=== PATIENT | male | born 1965 | race Caucasian/White ===

== ENCOUNTER 2024-04-25 07:09 | Outpatient (CLI) | payer BC | END 2024-04-25 07:10 | disposition home or self-care (01) | LOC: CSHCT 07:09 | PROVIDERS: ATTEND Physician Assistant | DX: R10.33 Periumbilical pain (principal); K63.89 Other specified diseases of intestine; K57.30 Diverticulosis of large intestine without perforation or abscess without bleeding | CPT/HCPCS: 74177 ==